=== PATIENT | male | born 1960 | race Caucasian/White ===

== ENCOUNTER → 2022-06-08 14:15 | Outpatient (REF) | payer OTHER, SELFPAY | LOC: HO.SL 14:15 | PROVIDERS: Visit Provider Registered Nurse | DX: G47.33 Obstructive sleep apnea (adult) (pediatric) (principal) | CPT/HCPCS: 95806 ==

== ENCOUNTER 2023-08-17 08:37 | Outpatient (REF) | payer OTHER, SELFPAY ==
[2023-08-17 12:24] LABS: Alanine Aminotransferase 27 U/L (0-40); Albumin Level 4.3 g/dL (3.5-5.0); Alkaline Phosphatase 87 U/L (39-117); Anion Gap 14 (12-20); Aspartate Amino Transferase 24 U/L (5-37); Bilirubin Total 0.8 mg/dL (0.0-1.0); Blood Urea Nitrogen 16 mg/dL (9-16); Calcium 9.5 mg/dL (8.4-10.2); Carbon Dioxide 24 mmol/L (22-29); Chloride 106 mmol/L (96-108); Cholesterol 115 mg/dL (<200); Estimated Glomerular Filt Rate > 60; Glucose Random 100 mg/dL (60-115); HDL Cholesterol 40 mg/dL (>40); LDL Cholesterol Calculated 56 mg/dL (<100); Sodium 140 mmol/L (135-145); Total Protein 7.4 g/dL (6.5-8.0); Triglycerides 96 mg/dL (<150)
== END 2023-08-17 08:38 | disposition home or self-care (01) ==
LOC: HO.HHCL 08:37
PROVIDERS: Visit Provider Registered Nurse
DX: I10 Essential (primary) hypertension (principal)
CPT/HCPCS: 36415; 80053; 80061

== ENCOUNTER 2024-05-02 10:47 | Outpatient (AMB) | payer BC, SELFPAY ==
--- NOTE | 2024-05-02 08:04 | A.OFFVIS_ITS ---
Intake Visit Reasons: LDCT HPI HPI LDCT: Details: Initial visit for this 64yo smoker with a 25PYH. Patient started smoking at age 20 for 29 years at 1ppd. He quit ~2009. . Denies marijuana use. Denies second hand smoke exposure. Denies exposure to chemicals or substances like asbestos. . Denies known family history of lung cancer. Denies personal history of cancers. Denies chest CT in last year. . Denies recent travel outside the [place]. Denies recent respiratory illness or recent hospitalization for respiratory issues. Denies testing positive for COVID. Admits receiving COVID Vaccine. . Denies fever, chills, new/worsening cough, hemoptysis, hoarseness or dysphagia. Denies significant chest pain, significant dyspnea or unintentional weight loss. Patient Lung Cancer Screening Questionnaire reviewed with patient by provider. . Shared Decision Making Completed. Patient meets criteria. Discussed in detail with patient, the risk vs benefit of LDCT screening. Patient consents to proceed with scan. Discussed and encouraged continuedsmoking cessation. This will be one and only scan if comes back Lung RADS 1-or-2 as quit 15years ago. [facility] Medical History (Updated 05/02/24 @ 11:09 by Eva Carmichael PA-C) Personal history of nicotine dependence Surgical History (Updated 11/29/23 @ 14:21 by EMILEE Galo) H/O vasectomy H/O right inguinal hernia repair H/O colonoscopy Social History (Updated 05/02/24 @ 11:09 by Eva Carmichael PA-C) Patient Tobacco Use Status: Former Tobacco user Years Smoked: (onset 20yo, 1ppd x 29yrs, 25pyh - quit 2009) Assessment & Plan Assessment & Plan (1) Personal history of nicotine dependence: Comment: (onset 20yo, 1ppd x 29yrs, 25pyh - quit 2009) Code(s): Z87.891 - Personal history of nicotine dependence Category: Medical Plan: - SDM visit completed today in office. - Patient meets criteria for LDCT for lung cancer screening purposes and is asymptomatic. - Smoking cessation counseling offered. Patients can always call [phone]. - Will arrange for a LDCT scan of the chest for screening purposes at [facility]. - Risks, benefits, and alternatives were discussed in detail and the patient agrees to proceed. - Risks discussed include but are not limited to: radiation exposure, anxiety during testing and while awaiting results, false negatives, false positives and possibility of additional intervention such as further imaging or surgical procedures for benign disease. - Benefits are obviously detection of lung cancer at an early stage which can lead to improved outcomes. - Discussed the importance of screening program compliance with adherence to yearly LDCT scan as scheduled - or sooner interval scans for personalized screening regimen. - Discussed follow up plan. Our office will send a letter discussing results and if needed set up phone call and office visit based on CT findings. - Patient educated on results categorization and the management decisions for suspicious findings potentially found on the screening LDCT scan. Any patient with a Lung RADS score of 3 or 4 will be reviewed by a multidisciplinary team at [facility] to form a plan of action in regards to scan findings. - If further work up is warranted for a suspicious lung finding this will be followed by the Lung Cancer Screening program in conjunction with the Thoracic Surgery Department at [facility]. - A copy of the office note and LDCT will be sent to the patient's PCP - as well as documentation on any associated further plans of care. - Incidental findings on LDCT are the PCP's responsibility. These findings are indicated with an S finding on the LDCT Assessment. A note discussing the findings will be sent to the PCP who is then responsible for further management. - All questions answered.? Plan Coding Level of Care Code Lung Cancer Screening G0296 Diagnoses Personal history of nicotine dependence Z87.891
== END 2024-05-02 11:07 | disposition home or self-care (01) ==
PROVIDERS: PCP Registered Nurse; Visit Provider Physician Assistant Medical
DX: Z87.891 Personal history of nicotine dependence (principal)
CPT/HCPCS: G0296

== ENCOUNTER 2024-05-02 11:09 | Outpatient (REF) | payer BC, SELFPAY ==
--- NOTE | ~2024-05-02 | CT_ITS ---
CLINICAL HISTORY: Z87.891 - Personal history of nicotine dependence CT lung cancer screening (LDCT) Comparison: None Technique: Axial CT images of the chest using low-dose technique. Referring provider counseled the patient on shared decision-making for LDCT screening. Additional counseling was provided on smoking cessation. Effective radiation dose total: DLP 59.3 mGycm, CTDIvol 1.6 mGy. Findings: Lung: No pulmonary nodules identified. Lungs are clear. No significant pleural effusion or pneumothorax. Coronary artery calcifications: None Colonic diverticulosis Minimal gynecomastia. Impression: No pulmonary nodules identified. Category 1, normal continued annual screening. Category 1: Normal; continue annual screening Category 2: Benign appearance or behavior, continue annual screening Category 3: Probably benign, [address] recommended Category 4A: Suspicious, [address] recommended; may consider PET/CT Category 4B: Suspicious, Additional diagnostics and/or tissue sampling recommended Category 4X: Suspicious, Additional diagnostics and/or tissue sampling recommended Category 0: Recalls (incomplete screen due to Incomplete coverage, Noise, Respiratory motion, Expiration, Obscured by acute abnormality) This document has been electronically signed by: Kyler Montilla MD on 05/02/2024 22:07:59
== END 2024-05-02 11:10 | disposition home or self-care (01) ==
LOC: HO.CT 11:09
PROVIDERS: PCP Registered Nurse; Visit Provider Physician Assistant Medical
DX: Z12.2 Encounter for screening for malignant neoplasm of respiratory organs (principal); Z87.891 Personal history of nicotine dependence
CPT/HCPCS: 71271

== ENCOUNTER 2024-12-03 08:44 | Outpatient (AMB) | payer BC, SELFPAY ==
--- NOTE | 2024-12-03 08:50 | MHC.OFFVIS ---
Vital Signs 12/03/24 09:18 Height 6 ft 2 in Weight 232 lb BMI 29.8 BP 108/74 Blood Pressure Location Lt brachial Position Sitting Pulse 73 Pulse Oximetry (%) 99 Oxygen Delivery Method Room Air Intake Visit Reasons: colo screening Intake Note: Patient new consult for 2nd pre colonoscopy screening/ 5 yrs recall. Patient denies any GI issues for today visit. 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 He is referred by [facility]. PMX DION Hypertension High cholesterol Obesity-BMI OF 31 Tubular adenoma * SURGICAL HISTORY COLONOSCOPY -2019; [place]= 1 TA Vasectomy Right inguinal hernia repair * ALLERGIES SURAJ inhibitor-cough * [facility] LABS: Needs labs updated TODAY'S VISIT [facility] Last scope 2018 with TA. Fasting labs ordered to facilitate upcoming appt with PCP including lipid. He denies bowel or upper stomach problems. HE has DION and denies cardiac problems. No anes or sed problems. NO ID Problems THere is no known FHX of polyps or CRC known to him. [facility] Medical History (Updated 12/03/24 @ 08:53 by EMILEE Galo) Personal history of nicotine dependence Surgical History H/O vasectomy H/O right inguinal hernia repair H/O colonoscopy Social History (Updated 05/02/24 @ 11:09 by Eva Carmichael PA-C) Patient Tobacco Use Status: Former Tobacco user Years Smoked: (onset 20yo, 1ppd x 29yrs, 25pyh - quit 2009) Review of Systems Const Denies fatigue, Denies fever(s), Denies night sweats, Denies poor appetite and Denies weight loss Eyes Reports requires corrective lenses ENT Reports Normal hearing present, Denies dental pain, Denies dysphagia, Denies hearing loss, Denies mouth pain, Denies odynophagia, Denies throat swelling, Denies tongue swelling and Reports other (Dentition adequate) GI Details: Denies abdominal pain, Denies melena, Denies bloating, Denies hematochezia, Denies constipation, Denies GI cramping, Denies dysphagia, Denies excessive flatus, Denies early satiety, Denies heartburn, Denies diarrhea, Denies nausea, Denies odynophagia, Denies vomiting and Denies hematemesis Skin/Breast Denies pruritus, Denies lesions, Denies rash and Denies jaundice Neuro Reports Normal hearing present and Denies Abnormal speech present Endo Denies fatigue Aller/Immun Denies throat swelling and Denies tongue swelling Physical Exam Const General: cooperative, no acute distress, well developed and well groomed Nutritional Appearance: well nourished and overweight Orientation/consciousness: oriented to person, oriented to place and oriented to time Limitations: language barrier HEENT Head: Yes normocephalic and Yes atraumatic Eyes General: appearance normal, both eyes and all related structures Pupils: Equal, round and reactive pupils present Neck Neck: Yes normal visual inspection and Yes no lymphadenopathy Thyroid: Thyroid normal Resp Effort & Inspection: normal respiratory effort and able to speak in complete sentences Auscultation: clear to auscultation bilaterally Cardio Rate: regular rate Rhythm: regular rhythm Heart sounds: Normal, physiologic split S2 sound present Peripheral pulses: radial pulses present and posterior tibial pulses present GI Inspection: No distended, No Abdominal panniculus present and Yes obesity Palpation (GI): Soft to palpation, nontender, no guarding, not rigid and No hepatosplenomegaly present Percussion: Yes normal to percussion Auscultation: normal bowel sounds Rectal Exam - Male: Yes deferred Skin General skin exam: no rashes or lesions noted, turgor normal, skin not dry, no jaundice, No spider nevi and no striae Rashes: no rashes Nails: normal Neuro General: oriented to person, oriented to place and oriented to time Cranial nerves: Yes Equal, round and reactive pupils present and Yes Normal hearing present Speech: No Abnormal speech present Extrem General: Yes normal to inspection, No clubbing, No cyanosis and No edema Psych Appearance: grossly normal and well kempt Mental Status: mental status grossly normal Speech and movement: Normal speech and movement present Affect: normal affect Attitude: cooperative Thought process: Normal thought process present and not confabulating Thought content: Normal thought content present Insight: Good insight present (Psych) Judgement: Good judgement present (Psych) Assessment & Plan Assessment & Plan (1) Pre-op examination: Code(s): Z01.818 - Encounter for other preprocedural examination Category: Medical (2) DION (obstructive sleep apnea): Comment: (mild AHI 7.8 - 06/2023) Code(s): G47.33 - Obstructive sleep apnea (adult) (pediatric) Category: Medical (3) Personal history of nicotine dependence: Comment: (onset 20yo, 1ppd x 29yrs, 25pyh - quit 2009) Code(s): Z87.891 - Personal history of nicotine dependence Category: Medical (4) Tubular adenoma of colon: Comment: 2019 scope= 1 TA repeat in 5 years Code(s): D12.6 - Benign neoplasm of colon, unspecified Category: Medical (5) High cholesterol: Code(s): E78.00 - Pure hypercholesterolemia, unspecified Category: Medical (6) Hypertension: Code(s): I10 - Essential (primary) hypertension Category: Medical Plan [employer] Last scope 2019 with TA. Fasting labs ordered to facilitate upcoming appt with PCP including lipid. He denies bowel or upper stomach problems. HE has DION and denies cardiac problems. No anes or sed problems. NO ID Problems THere is no known FHX of polyps or CRC known to him. Orders: Orders Colonoscopy - GI Use Only Today Complete Blood Count Auto Diff Today Z01.818 - Encounter for other preprocedural examination Lipid Panel Today E78.00 - Pure hypercholesterolemia, unspecified Comprehensive [place]. Panel Fast Today E78.00 - Pure hypercholesterolemia, unspecified, I10 - Essential (primary) hypertension Medications: New bisacodyl (Dulcolax (bisacodyl)) 10 mg (2 x 5 mg) PO BEDTIME 4 tabs 0RF 2 days peg 3350-electrolytes 236-22.74-6.74 -5.86 gram (Golytely) until fecal effluent is clear; do not exceed a total volume of 2,000 mL 240 mL PO Q10M 4,000 mL 0RF 1 day Z12.11 - Encounter for screening for malignant neoplasm of colon Coding Level of Care Code New Pt Level 3 (18041) Diagnoses Pre-op examination Z01.818 DION (obstructive sleep apnea) G47.33 Personal history of nicotine dependence Z87.891 Tubular adenoma of colon D12.6 High cholesterol E78.00 Hypertension I10
[2024-12-03 09:18] VITALS: BP 108/74; PULSE 73; O2SAT 99; BMI 29.8
--- OUTSIDE RECORDS SUMMARY | 2024-12-03 09:25 | XMS_ITS | Clinical Summary ---
Author Organization [employer] Address [address] [facility] 7[address] [place] [address] Care Team Providers Care Vehicle Refinisher Name Role Phone Brianna Engel [facility] Primary Care Provider [phone] Allergies Active Allergy Reactions Criticality Noted Date Comments [place] Inhibitors 04/24/2016 Medications losartan (Cozaar) 100 MG tablet take 1 tablet by oral route every day 021 Active psyllium (Konsyl Daily Fiber) 100 % powder 1 scoop bid prn constipation 019 Active hydrocortisone (Anusol-HC) 25 MG suppository 005 Active Blood Pressure kit Active amLODIPine (Norvasc) 10 MG tabletIndications :Essential hypertension TAKE 1 TABLET BY MOUTH EVERY DAY IN THE MORNING FOR BLOOD PRESSURE 30 tablet 3 025 Active atorvastatin (Lipitor) 10 MG tabletIndications :Mixed hyperlipidemia TAKE 1 TABLET BY MOUTH EVERY DAY IN THE MORNING 90 tablet 3 025 Active atorvastatin (Lipitor) 10 MG tabletIndications :Mixed hyperlipidemia TAKE 1 TABLET BY MOUTH EVERY DAY IN THE MORNING 90 tablet 3 024 2024 Discontinued Active Problems Problem Noted Date Diagnosed Date DION (obstructive sleep apnea) 07/16/2022 Overview (07/16/2022): 04/2022 Home sleep study with mild DION. No CPAP at this time Healthcare maintenance 07/14/2022 Overview (07/16/2022): C-scope: 11/2018, polyp removed, pathology results not in chart PSA:04/2022, 1.19 HCV Screen: Neg 04/2022 HIV Screen: Neg 04/2022 A1c: 04/2022 5.6% Obesity (BMI 30.0-34.9) 03/29/2022 Smoking greater than 30 pack years 03/29/2022 Overview (08/08/2023): Quit age 47 Mixed hyperlipidemia 03/29/2022 Overview (07/16/2022): Atorvastatin 10mg Assessment & Plan (10/29/2022 3:19 PM EDT): Continue current regimen Repeat lipids at follow up Assessment & Plan (07/16/2022 11:08 AM EDT): Continue current regimen Pending repeat lipid panel may increase accordingly Tubular adenoma of colon 12/04/2018 Essential hypertension 03/29/2016 Overview (10/29/2022): Losartan 100mg Amlodipine 10mg Prior cough with ACEi Maintenance: BMP: 04/2022 Lipid Panel: 07/2022 ASCVD Risk: 8.0% EKG: Obtain baseline at f/u - Aerobic exercise to reduce BP. Initial goal of 30 min walk 3-5x/week. Increase as tolerated. - low-sodium diet (goal: <2g/day) and heart healthy diet such as DASH to reduce BP and prevent ASCVD. - Home BP monitoring 1-2 x day with goal of <140/90. - Seek immediate medical attention for chest pain, palpitations, SOB, syncope, or sudden changes in mental status. - Do not change or discontinue current prescriptions without first consulting health care provider Assessment & Plan (10/29/2022 3:18 PM EDT): Well controlled Continue current regimen Assessment & Plan (07/16/2022 11:01 AM EDT): Well controlled Continue current regimen Updated lipid panel ordered Resolved Problems Problem Noted Date Diagnosed Date Resolved Date Cardiovascular event risk 03/29/2022 Muscle cramp 03/29/2022 07/16/2022 Adverse effect of angiotensi n-converting enzyme inhibitor 04/24/2016 07/16/2022 IFG (impaired fasting glucose) 04/24/2016 07/16/2022 Encounters Date Type Department Care Team Description 11/20/2024 Telephone [facility] [address] [facility] [place] [address] [place], [facility] Oct recall 11/15/2024 Refill [facility] MEDICINE [address] [facility] [address] [place] [facility] Mixed hyperlipidemia 10/18/2024 Refill [facility] [address] [facility] [place] [address] [place], [facility] Essential hypertension from Last 3 Months Immunizations Immunization Administration Dates Next Due Influenza injectable quadriv alent preservative free 02/03/2022,01/15/2019,03/29/2016 Moderna Covid-19 Vaccine 12+ 10/25/2021, 03/09/2021,06/16/2020,2020 Pfizer Covid-19 Vaccine 12+ 07/23/2024 Pneumococcal Conjugate PCV 20 07/23/2024 Tdap 08/12/2021 Zoster, Recombinant 05/04/2020,03/01/2020 Family History Medical History Relation Name Comments Diabetes type II Mother Hypertension Mother Colon cancer Neg Hx Prostate cancer Neg Hx Relation Name Status Comments Mother Social History Tobacco Use Types Packs/Day Years Used Date Smoking Tobacco: Former Cigarettes Q uit: 2009 Smokeless Tobacco: Never Tobacco Cessation:Counseling Given: Not Answered Alcohol Use Standard Drinks/Week Comments Not Currently 0 (1 standard drink = 0.6 oz pur e alcohol) rare Depression Answer Date Recorded Patient Health Questionnaire-9 Score 0 07/23/2024 Patient Health Questionnaire-9 Score 0 07/23/2024 Last PHQ-9: Questionnaire Data Not on file 0 07/23/2024 Housing Stability Answer Date Recorded What is your housing situation today? I have jackie bailey 01/08/[address] you li ve. Do you have problems with any of the following? None of the above 01/08/2024 Food Insecurity Answer Date Recorded Within the past 12 months, y ou worried that your food would run out before you got money to buy more: Never True 01/08/2024 Within the past 12 months,th e food you bought just didn't last and you didn't have enough money to get more: Never True Transportation Answer Date Recorded In the past 12 months, has l ack of transportation kept you from medical appts, meetings, work or from getting things needed for daily living? No 01/08/2024 Utilities Answer Date Recorded In the past 12 months, has t he electric, gas, oil or water company threatened to shut off services in your home? No 01/08/2024 Depression Answer Date Recorded Patient Health Questionnaire-2 Score 0 07/23/2024 Internet Access Answer Date Recorded Internet Access Q1 Yes 01/08/2024 Internet Access Q2 Not on file 01/08/2024 Sex and Gender Information Value Date Recorded Sex Assigned at Male 02/13/2022 10:29 AM EDT Legal Sex Male 10:29 AM EDT Gender Identity Male 02/13/2022 10:29 AM EDT Sexual Orientation Choose not to disclose 2021 10:29 AM EDT Last Filed Vital Signs Vital Sign Reading Time Taken Comments Blood Pressure 120/70 07/23/2024 11:15 AM EDT Pulse 75 07/23/2024 10:46 AM EDT Temperature 36.8 C (98.3 F) 07/23/2024 10:46 AM EDT Respiratory Rate 21 07/23/2024 10:46 AM EDT Oxygen Saturation 99% 07/23/2024 10:46 AM EDT Inhaled Oxygen Concentration - - Weight 108 kg (239 lb) 07/23/2024 10:46 AM EDT Height 188 cm (6' 2 ) 07/23/2024 10:46 AM EDT Body Mass Index 30.69 07/23/2024 10:46 AM EDT Plan of Treatment Health Maintenance Due Date Last Done Comments CT Colonography 1962 Colonoscopy 1962 Colorectal Cancer Screening 1962 FIT DNA/Cologuard 1962 FIT 1962 FOBT 1962 Sigmoidoscopy 1962 Influenza Vaccine (#1) 2024 , 02/03/2022, 01/15/2019, Additional history exists SDOH Screening 07/15/2025 07/15/2024 Alcohol/Substance Use Screening 07/23/2025 07/23/2024 Depression Screening 07/23/2025 07/23/2024, 07/24/19 Disability Screening 07/23/2025 07/23/2024 Tobacco Screening 07/27/2025 07/27/2024 Lipid Panel 08/16/2028 08/17/2023, 04/0 09/2022, 05/11/2022, Additional history exists DTaP/Tdap/Td Vaccines (2 - Td or Tdap) 08/13/2031 08/12/2021 RSV Patients and Patients Aged 60 years or older (1 - 1-dose 75+ series) 2037 Zoster Vaccines Completed 05/04/2020, 03/01/2020 HIV Screening Completed 05/11/2022 Hepatitis C Screening Completed 05/11/2022 COVID-19 Vaccine Completed 07/23/2024, , 10/25/2021, Additional history exists Pneumococcal Vaccine: 50+ Years Completed 07/23/2024 HIB Vaccines Aged Out No longer eligi ble based on patient's age to complete this topic HPV Vaccines Aged Out No longer eligi ble based on patient's age to complete this topic Hepatitis A Vaccines Aged Out No long er eligible based on patient's age to complete this topic Hepatitis B Vaccines Aged Out No long er eligible based on patient's age to complete this topic IPV Vaccines Aged Out No longer eligi ble based on patient's age to complete this topic Meningococcal B Vaccine Aged Out No l onger eligible based on patient's age to complete this topic Meningococcal Vaccine Aged Out No shannon wilma eligible based on patient's age to complete this topic RSV under 20 months Aged Out No longe r eligible based on patient's age to complete this topic Rotavirus Vaccines Aged Out No longer eligible based on patient's age to complete this topic Procedures Procedure Name Priority Date/Time Associated Diagnosis Comments LIPID PANEL, STANDARD Routine 08/17/2023 8:40 AM EDT Essential hypertension HEPATITIS C AB W/REFL TO HCV RNA, QN, PCR Routine 05/11/2022 10:04 AM EST Healthcare maintenance HIV 1/2 ANTIGEN/ANTIBODY, FOURTH GENERATION W/RFL Routine 05/11/2022 10:04 AM EST Healthcare maintenance from Last 3 Months or Most Recently Relevant to Health Maintenance Results * (ABNORMAL) Lipid Panel, Standard (08/17/2023 8:40 AM EDT) Triglycerides 96 <150 mg/dL [facility] Comment:Desirable Triglyceri de: less than 150 mg/dLBorderline High Triglyceride 150-199 mg/dLHigh Triglyceride: 200-499 mg/dLVery High Triglyceride: greater than or equal to 5OO mg/dL Cholesterol 115 <200 mg/dL [facility] Comment:Desirable Cholestero l: less than 200 mg/dLBorderline High Cholesterol: 200-239 mg/dLHigh Cholesterol: greater than 239 mg/dL LDL Cholesterol Calculated 56 <100 mg/dL [facility] Comment:Desirable LDL: less than 100 mg/dLNear Optimal/Above Optimal LDL: 110- 129 mg/dLBorderline High LDL: 130-159 mg/dLHigh LDL: 160-189 mg/dLVery High LDL: greater than or equal to 190 mg/dL HDL Cholesterol 40(L) >40 mg/dL [facility] Comment:Desirable HDL: great er than 40 mg/dL Note: This HDL assay may give artificially low results in patients with liver disease. Blood Venous blood specimen / Unknown 08/17/2023 8:40 AM EDT 08/17/2023 11:28 AM EDT [facility] LAB BLOOD ORDERABLES Final Re sult [facility] [address] [place] [phone] * Hepatitis C Antibody with Reflex to HCV, RNA, Quantitative, Real-Time PCR (05/11/2022 10:04 AM EST) Hepatitis C Antibody NON-REACT PATTI NON-REACT PATTI [facility] Index 0.12 <1.00 [facility] [place] [facility] Comment: HCV antibody was non-reactive. There is no laboratory evidence of HCV infection. In most cases, no further action is required. However, if recent HCV exposure is suspected, a test for HCV RNA (test code 94592) is suggested. For additional information please refer to http://BioElectronics.Envis/faq/RTN22v6 (This link is being provided for informational/ educational purposes only.) Blood Venous blood specimen / Unknown 05/11/2022 10:04 AM EST 05/11/2022 10:04 AM EST Narrative [facility] - 05/12/2022 1:47 PM EST FASTING:NO FASTING: NO [facility] LAB BLOOD ORDERABLES Final Re sult [facility] [address], [place] [address] [facility] [employer] [address] [facility], ([address]) [place] [address] * HIV-1/2 Antigen and Antibodies, Fourth Generation, with Reflexes (05/11/2022 10:04 AM EST) Pathologist [facility] HIV Antigen/Antibody, 4th Generation NON-REAC TIVE NON-REAC TIVE [facility] [place] [facility] Comment: HIV-1 antigen and HIV-1/HIV-2 antibodies were not detected. There is no laboratory evidence of HIV infection. PLEASE NOTE: This information has been disclosed to you from records whose confidentiality may be protected by state law. If your state requires such protection, then the state law prohibits you from making any further disclosure of the information without the specific written consent of the person to whom it pertains, or as otherwise permitted by law. A general authorization for the release of medical or other information is NOT sufficient for this purpose. For additional information please refer to http://BioElectronics.Moneero.Mashable/faq/SGV688 (This link is being provided for informational/ educational purposes only.) The performance of this assay has not been clinically validated in patients less than 2 years old. Blood Venous blood specimen / Unknown 05/11/2022 10:04 AM EST 05/11/2022 10:04 AM EST Narrative [facility] - 05/12/2022 1:47 PM EST FASTING:NO FASTING: NO [facility] LAB BLOOD ORDERABLES Final Re sult [facility] [address] [facility], 3rd Fl[address] [place] [address] [facility] [address] [facility], ([address]) [place] [address] from Last 3 Months or Most Recently Relevant to Health Maintenance Insurance [facility] HMO Care Teams Vehicle Refinisher Relationship Specialty Start Date End Date Brianna Engel FNP [address] [place] [phone] PCP - General Family Medicine 05/11/22
== END 2024-12-03 09:55 | disposition home or self-care (01) ==
LOC: HO.HGI 08:45
PROVIDERS: PCP Registered Nurse; Visit Provider Nurse Practitioner
DX: Z01.818 Encounter for other preprocedural examination (principal); Z12.11 Encounter for screening for malignant neoplasm of colon; Z86.0101 Personal history of adenomatous and serrated colon polyps; Z87.891 Personal history of nicotine dependence; E78.00 Pure hypercholesterolemia, unspecified; I10 Essential (primary) hypertension; G47.33 Obstructive sleep apnea (adult) (pediatric)
CPT/HCPCS: S0285

== ENCOUNTER 2024-12-06 07:44 | Outpatient (REF) | payer BC, SELFPAY ==
[2024-12-06 08:26] LABS: MANUAL DIFF FLAG NO
[2024-12-06 08:51] LABS: Hematocrit 42.9 % (42.0-52.0); Hemoglobin 14.9 g/dl (14.0-18.0); Imm Gran Abs Auto 0.02 X10*3/uL (0.00-0.03); Imm Gran Pct Auto 0.3 % (0.0-0.4); Lymphocytes Absolute Auto 1.9 X10*3/uL (1.2-4.9); Mean Corpuscular HGB Conc 34.7 g/dl (31.0-36.0); Mean Corpuscular Hemoglobin 31.7 pg (27.0-33.0); Mean Corpuscular Volume 91.3 fL (80.0-98.0); NRBC Abs Auto 0.000 X10*3/uL (0.0-0.012); NRBC Pct Auto 0.0 /100WBC (0.0-0.2); Platelet Count 255 X10*3/uL (160-400); Red Blood Count 4.70 X10*6/uL (4.60-5.80); White Blood Count 6.1 X10*3/uL (4.8-10.8)
[2024-12-06 09:29] LABS: Alanine Aminotransferase 40 U/L (0-40); Albumin Level 4.4 g/dL (3.5-5.0); Alkaline Phosphatase 93 U/L (39-117); Anion Gap 11 (12-20); Aspartate Amino Transferase 32 U/L (5-37); Blood Urea Nitrogen 14 mg/dL (9-16); Calcium 9.3 mg/dL (8.4-10.2); Carbon Dioxide 25 mmol/L (22-29); Chloride 108 mmol/L (96-108); Cholesterol 119 mg/dL (<200); Estimated Glomerular Filt Rate > 60; HDL Cholesterol 36 mg/dL (>40); Potassium 3.8 mmol/L (3.3-5.1); Sodium 140 mmol/L (135-145); Total Protein 7.3 g/dL (6.5-8.0); Triglycerides 121 mg/dL (<150)
== END 2024-12-06 07:45 | disposition home or self-care (01) ==
LOC: HO.LAB 07:44
PROVIDERS: PCP Registered Nurse; Visit Provider Nurse Practitioner
DX: Z01.818 Encounter for other preprocedural examination (principal); E78.00 Pure hypercholesterolemia, unspecified; I10 Essential (primary) hypertension
CPT/HCPCS: 36415; 80053; 80061; 85025

== ENCOUNTER 2025-02-02 07:17 | Day surgery (SDC) | payer BC, SELFPAY ==
--- OUTSIDE RECORDS SUMMARY | 2025-01-27 10:24 | XMS_ITS | Clinical Summary ---
Author Organization [employer] Address [address] [facility] 7t [place] [address] Care Team Providers Care Silo Erector Name Role Phone Toro [facility] Primary Care Provider [phone] Allergies Active Allergy Reactions Criticality Noted Date Comments [place] Inhibitors 04/24/2016 Medications losartan (Cozaar) 100 MG tablet take 1 tablet by oral route every day 07/09/19 21 Active psyllium (Konsyl Daily Fiber) 100 % powder 1 scoop bid prn constipation 09/07/19 19 Active hydrocortisone (Anusol-HC) 25 MG suppository 10/15/19 05 Active Blood Pressure kit A ctive amLODIPine (Norvasc) 10 MG tabletIndications: Essential hypertension TAKE 1 TABLET BY MOUTH EVERY DAY IN THE MORNING FOR BLOOD PRESSURE 30 tablet 3 10/21/19 25 Active atorvastatin (Lipitor) 10 MG tabletIndications: Mixed hyperlipidemia TAKE 1 TABLET BY MOUTH EVERY DAY IN THE MORNING 90 tablet 3 11/19/19 25 Active Active Problems Problem Noted Date Diagnosed Date [...] Type Department Care Team Description 11/20/2024 Telephone [facility] [address] [place] [address] [facility] 11/15/2024 Refill [facility] [address] [place] [address] [facility] Mixed hyperlipidemia from Last 3 Months Immunizations Immunization Administration [...] 07/23/2024 Tobacco Screening 07/27/2025 07/27/2024 Lipid Panel 12/06/2029 12/06/2024, 05/0 06/2023, 07/20/2022, Additional history exists DTaP/Tdap/Td Vaccines (2 - [...] Associated Diagnosis Comments LIPID PANEL, STANDARD Routine 12/06/2024 8:24 AM EDT COMPREHENSIVE METABOLIC PANEL, FASTING Routine 12/06/2024 8:24 AM EDT CBC WITH AUTO DIFFERENTIAL Routine 12/06/2024 8:24 AM EDT HEPATITIS C AB W/REFL TO HCV RNA, QN, PCR Routine 05/11/2022 10:04 AM EST Healthcare maintenance HIV 1/2 ANTIGEN/ANTIBODY, FOURTH GENERATION W/RFL Routine 05/11/2022 10:04 AM EST Healthcare maintenance from Last 3 Months or Most Recently Relevant to Health Maintenance Results * (ABNORMAL) Comprehensive Metabolic Panel, Fasting (12/06/2024 8:24 AM EDT) Sodium 140 135 - 145 mmol/L [facility] Potassium 3.8 3.3 - 5.1 mmol/L [facility] Chloride 108 96 - 108 mmol/L [facility] Carbon Dioxide 25 22 - 29 mmol/L [facility] Anion Gap 11(L) 12 - 20 [facility] Urea Nitrogen (BUN) 14 9 - 16 mg/dL [facility] Creatinine, Serum 1.12 0.5 - 1.4 mg/dL [facility] Estimated Glomerular Filt Rate >60 [facility] Comment:Chronic Kidney Disea se: Estimated GFR < 60 mL/min/1.35o6Uujzzo Kidney Disease: Estimated GFR < 15 mL/min/1.73m2 Glucose Fasting 106(H) 60 - 99 mg/dL [facility] Comment:A fasting glucose fr om 100-125 mg/dl is considered impaired(pre-diabetes). Calcium 9.3 8.4 - 10.2 mg/dL [facility] Bilirubin, Total 1.1(H) 0.0 - 1.0 mg/dL [facility] Aspartate Amino Transferase 32 5 - 37 U/L [facility] Alanine Aminotransferase 40 0 - 40 U/L [facility] Total Protein 7.3 6.5 - 8.0 g/dL [facility] Albumin Level 4.4 3.5 - 5.0 g/dL [facility] Alkaline Phosphatase 93 39 - 117 U/L [facility] 12/06/2024 8:24 AM EDT 12/06/2024 8:24 AM EDT us Generic External Data Provider LAB BLOOD ORDERAB LES Final Result [facility] [address] [place] [phone] * (ABNORMAL) CBC auto differential (12/06/2024 8:24 AM EDT) White Blood Count 6.1 4.8 - 10.8 X10*3/uL [facility] Red Blood Count 4.70 4.60 - 5.80 X10*6/uL [facility] Hemoglobin 14.9 14.0 - 18.0 g/dl [facility] Hematocrit 42.9 42.0 - 52.0 % [facility] Mean Corpuscular Volume 91.3 80.0 - 98.0 fL [facility] Mean Corpuscular Hemoglobin 31.7 27.0 - 33.0 pg [facility] Mean Corpuscular HGB Conc 34.7 31.0 - 36.0 g/dl [facility] Red Cell Distribution Width 13.4 11.0 - 16.0 % [facility] Platelet Count 255 160 - 400 X10*3/uL [facility] Mean Platelet Volume 10.3 9.4 - 12.4 fL [facility] Neutrophils Percent Auto 54.1 45 - 73 % [facility] Imm Gran Pct Auto 0.3 0.0 - 0.4 % [facility] Lymphocytes Percent Auto 31.5 20 - 40 % [facility] Monocytes Percent Auto 6.8 2 - 11 % [facility] Eosinophils Percent Auto 6.3(H) 0 - 4 % [facility] Basophils Percent Auto 1.0 0 - 2 % [facility] NRBC Pct Auto 0.0 0.0 - 0.2 /100WBC [facility] Neutrophils Absolute Auto 3.3 2.0 - 8.3 x10*3/uL [facility] Imm Gran Abs Auto 0.02 0.00 - 0.03 X10*3/uL [facility] Lymphocytes Absolute Auto 1.9 1.2 - 4.9 X10*3/uL [facility] Monocytes Absolute Auto 0.4 0.1 - 1.2 X10*3/uL [facility] Eosinophils Absolute Auto 0.4 0.0 - 0.4 X10*3/uL [facility] Basophils Absolute Auto 0.1 0.0 - 0.2 X10*3/uL [facility] NRBC Abs Auto 0.000 0.0 - 0.012 X10*3/uL [facility] 12/06/2024 8:24 AM EDT 12/06/2024 8:24 AM EDT us Generic External Data Provider LAB BLOOD ORDERAB LES Final Result Performing Organization Address [facility] Co de Phone Number [facility] [address] [place] [phone] * (ABNORMAL) Lipid Panel, Standard (12/06/2024 8:24 AM EDT) Triglycerides 121 <150 mg/dL [facility] Comment:Desirable Triglyceri de: less than 150 mg/dLBorderline High Triglyceride 150-199 mg/dLHigh Triglyceride: 200-499 mg/dLVery High Triglyceride: greater than or equal to 5OO mg/dL Cholesterol 119 <200 mg/dL [facility] Comment:Desirable Cholestero l: less than 200 mg/dLBorderline High Cholesterol: 200-239 mg/dLHigh Cholesterol: greater than 239 mg/dL LDL Cholesterol Calculated 59 <100 mg/dL [facility] Comment:Desirable LDL: less than 100 mg/dLNear Optimal/Above Optimal LDL: 110- 129 mg/dLBorderline High LDL: 130-159 mg/dLHigh LDL: 160-189 mg/dLVery High LDL: greater than or equal to 190 mg/dL HDL Cholesterol 36(L) >40 mg/dL [facility] Comment:Desirable HDL: great er than 40 mg/dL Note: This HDL assay may give artificially low results in patients with liver disease. 12/06/2024 8:24 AM EDT 12/06/2024 8:24 AM EDT us Generic External Data Provider LAB BLOOD ORDERAB LES Final Result Performing Organization Address [facility]/ZIP Co de Phone Number [facility] [address] [place] [phone] * Hepatitis C Antibody with Reflex to HCV, RNA, Quantitative, Real-Time PCR (05/11/2022 10:04 AM EST) Hepatitis C Antibody NON-REACT PATTI NON-REACT PATTI [employer] [place] [employer] Index 0.12 <1.00 [employer] [place] [employer] Comment: HCV antibody was non-reactive. There is no laboratory evidence of HCV infection. In most cases, no further action is required. However, if recent HCV exposure is suspected, a test for HCV RNA (test code 91852) is suggested. For additional information please refer to http://education.Serious Parody/faq/MGD02r2 (This link is being provided for informational/ educational purposes only.) Blood Venous blood specimen / Unknown 05/11/2022 10:04 AM EST 05/11/2022 10:04 AM EST Narrative [facility] - 05/12/2022 1:47 PM EST FASTING:NO FASTING: NO [facility] LAB BLOOD ORDERABLES Final Re sult [facility] [address] [facility], [facility], [place] [address] [employer] [place] Search to Phone [address] [facility], ([address]) [place] [address] * HIV-1/2 Antigen and Antibodies, Fourth Generation, with Reflexes (05/11/2022 10:04 AM EST) Pathologist [facility] HIV Antigen/Antibody, 4th Generation NON-REAC TIVE NON-REAC TIVE [employer] [place] Search to Phone Comment: HIV-1 antigen and HIV-1/HIV-2 antibodies were [...] purpose. For additional information please refer to http://education.NEST Fragrances.Urban Remedy/faq/YTL442 (This link is being provided for informational/ educational purposes only.) The performance of this assay has not been clinically validated in patients less than 2 years old. Blood Venous blood specimen / Unknown 05/11/2022 10:04 AM EST 05/11/2022 10:04 AM EST Narrative [facility] - 05/12/2022 1:47 PM EST FASTING:NO FASTING: NO [facility] LAB BLOOD ORDERABLES Final Re sult [facility] [address], [place] [address] [employer] [facility] [address] [facility], ([address]) [place] [address] from Last 3 Months or Most Recently Relevant to Health Maintenance Insurance [facility] H[facility] Care Teams Silo Erector Relationship Specialty Start Date End Date [place]A Reed [address] [place] [address] PCP - General Family Medicine 05/11/22
[2025-02-02 07:34] VITALS: BMI 29.7
[2025-02-02 07:41] VITALS: BMI 29.7
[2025-02-02 08:09] VITALS: BP 133/88; PULSE 75; RESP 16; TEMP 36.9; O2SAT 97
[2025-02-02] MEDS: Lactated Ringers 1,000 ML 100 ML IVCONT (08:09)
--- NOTE | 2025-02-02 08:37 | HO.ANESPROP2 ---
Documented by User: Bel Rodriguez NP 01/29/25 09:47 HPI - Anesthesia Eval Consult details Narrative: 64yo M for ?Colonoscopy [facility] Active Problems Active Problems: All Active Problems Pre-op examination (Acute) Personal history of nicotine dependence (Acute) Tubular adenoma of colon (Acute) High cholesterol (Acute) Hypertension (Acute) Obesity (BMI 30.0-34.9) (Acute) DION (obstructive sleep apnea) (Acute) Past Medical History Medical History Personal history of nicotine dependence Surgical History Surgical History H/O vasectomy H/O right inguinal hernia repair H/O colonoscopy Social History Social History Patient Tobacco Use Status: Former Tobacco user Years Smoked: (onset 20yo, 1ppd x 29yrs, 25pyh - quit 2009) Smoked in Last 30 Days: No Use of substances other than those prescribed or required for medical reasons: No Have you been hit, kicked, punched, or otherwise hurt by someone within the past year? If so, by whom?: No Are you DNR?: No Advance Directives: No Advance Directives Information Provided: Yes Meds Allergies Allergy/AdvReac Type Severity Reaction Status Date / Time SURAJ Inhibitors AdvReac Intermediate Cough Verified 02/02/25 07:40 Home Medications ?Medication ?Instructions ?Recorded ?Confirmed ?Last Taken ?Type amlodipine 10 mg tablet 10 mg PO QAM blood pressure 12/03/24 02/02/25 02/02/25 06:00 History atorvastatin 10 mg tablet 10 mg PO QAM 12/03/24 02/02/25 Unknown History losartan 100 mg tablet 100 mg PO DAILY 12/03/24 02/02/25 Unknown History Assessment and Plan Assessment Anesthesia Assessment: Chart Reviewed Documented by User: Dee Forrest DO 02/02/25 08:39 [facility] Past Medical History Medical History Personal history of nicotine dependence Family History Family history of problems with anesthesia: No Surgical History Surgical History H/O vasectomy H/O right inguinal hernia repair H/O colonoscopy History of Problems with Anesthesia: No Social History Social History Patient Tobacco Use Status: Former Tobacco user Years Smoked: (onset 20yo, 1ppd x 29yrs, 25pyh - quit 2009) Smoked in Last 30 Days: No Use of substances other than those prescribed or required for medical reasons: No Have you been hit, kicked, punched, or otherwise hurt by someone within the past year? If so, by whom?: No Are you DNR?: No Advance Directives: No Advance Directives Information Provided: Yes Meds Allergies Allergy/AdvReac Type Severity Reaction Status Date / Time SURAJ Inhibitors AdvReac Intermediate Cough Verified 02/02/25 07:40 Home Medications ?Medication ?Instructions ?Recorded ?Confirmed ?Last Taken ?Type amlodipine 10 mg tablet 10 mg PO QAM blood pressure 12/03/24 02/02/25 02/02/25 06:00 History atorvastatin 10 mg tablet 10 mg PO QAM 12/03/24 02/02/25 Unknown History losartan 100 mg tablet 100 mg PO DAILY 12/03/24 02/02/25 Unknown History Exam Exam Date and Time: 02/02/25 0838 Height,Weight and Vital Signs: Height 6 ft 2 in Weight 105 kg Vital Signs Temperature 98.5 F 02/02/25 08:09 Pulse Rate 75 02/02/25 08:09 Respiratory Rate 16 02/02/25 08:09 Blood Pressure 133/88 02/02/25 08:09 Pulse Oximetry 97 02/02/25 08:09 Oxygen Delivery Method Room Air 02/02/25 08:09 Temperature 98.5 F 02/02/25 08:09 Pulse Rate 75 02/02/25 08:09 Respiratory Rate 16 02/02/25 08:09 Blood Pressure 133/88 02/02/25 08:09 Pulse Oximetry 97 02/02/25 08:09 Oxygen Delivery Method Room Air 02/02/25 08:09 Airway Mallampati Class: II TM Dist: <=3cm Neck ROM: Full Loose/Missing/Broken Teeth: Yes (missing molar right lower jaw) Heart: S1S2 Lungs: CTAB Assessment and Plan Assessment Anesthesia Assessment: Anesthesia Plan Discussed and Chart Reviewed Final Anesthetic Review Family History of Problems with Anesthesia: No History of Problems with Anesthesia: No NPO: Yes ASA Class: II Final Preanesthetic Review: No Changes in Pt Med Stat, Meds/Allgs Chart Reviewed, Consent Obtained/Reviewed and Anes Risks/Benef Reviewed Patient Risk: Low Procedure Risk: Low Anesthetic Plan Anesthetic Plan: MAC: and Agree w/ Assess. and Plan Disposition: Standard PACU
--- NOTE | 2025-02-02 08:48 | MHC.SHP ---
Pre-Procedural Eval Section A - 24 Hr Update-Section A only Date of Service: 02/02/25 Section B - Complete if H&P > 30 days Chief Complaint: screening Details of Present Illness: Last colonoscopy was 6 years ago, had an adenoma removed Relevant Family History (Specify if Yes): No Relevant Social History: None Present Medications: see Short Stay Collaborative assessment Medical History: Significant History (Sleep apnea obesity hypertension hyperlipidemia history of smoking) Allergies: Allergies Allergy/AdvReac Type Severity Reaction Status Date / Time SURAJ Inhibitors AdvReac Intermediate Cough Verified 02/02/25 07:40 Review of Systems Sugical H&P ROS: Negative: Constitution, Cardiovascular, Respiratory and Gastrointestinal Exam Surgical H&P Exam: Normal: Heart, Normal: Lungs and Normal: Abdomen Plan Diagnosis/Plan: Unchanged I have reviewed the history and physical and performed a pertinent physical examination on my patient. No changes have occurred unless specified. Time Spent With Patient Time: Total time managing care of this patient today ____ minutes.
--- NOTE | 2025-02-02 09:24 | W.PM.OPN ---
Operative Note Operative Note Date of Service: 02/02/25 Narrative: Preop diagnosis: History of tubular adenoma Postop diagnosis: Mild occasional diverticuli throughout the colon otherwise normal colonoscopy findings Procedure: Colonoscopy Surgeon: Oliver Hua MD The patient is a 64-year-old male who had a tubular adenoma on his last colonoscopy in 2019 and referred to me for colonoscopy. Understood the technique of the planned procedure as was the risks, benefits, and alternatives The patient was brought to the operating room and placed in left lateral decubitus position under monitored anesthesia care. A surgical time-out was done. A full digital rectal exam was done and this did not reveal any significant anal lesions. The tip of the Olympus colonoscope was gently introduced through the anal orifice advanced with insufflation all the way to the cecum. The cecum was intubated. The cecum was identified by visualization of the ileocecal valve as well as the appendiceal orifice. The cecal mucosa was unremarkable. The scope was gradually withdrawn with careful examination of the entire colonic mucosa being done with scope withdrawal. The patient had adequate bowel prep so it was unlikely that any lesion may have been missed. There was note of occasional scattered diverticula throughout the entire colon. The rectum was reached and there were no lesions seen. The anal canal was unremarkable. The scope was then withdrawn completely with desufflation The patient tolerated the procedure well. There were no immediate complications. He falls at average risk for colon cancer so his next colonoscopy for screening may be in the next 10 years.
[2025-02-02 09:27] VITALS: BP 106/73; PULSE 82; RESP 13; TEMP 36.6; O2SAT 97
[2025-02-02 09:42] VITALS: BP 117/83; PULSE 68; RESP 18; TEMP 36.9; O2SAT 96
== END 2025-02-02 10:15 | disposition home or self-care (01) ==
PROVIDERS: PCP Registered Nurse; Visit Provider Surgery
PROC: 0DJD8ZZ Inspection of Lower Intestinal Tract, Via Natural or Artificial Opening Endoscopic (ICD-10-PCS; CPT 45378; principal; 2025-02-02 09:10)
DX: Z12.11 Encounter for screening for malignant neoplasm of colon (principal); Z86.0101 Personal history of adenomatous and serrated colon polyps; K57.30 Diverticulosis of large intestine without perforation or abscess without bleeding; I10 Essential (primary) hypertension; E78.00 Pure hypercholesterolemia, unspecified; E66.9 Obesity, unspecified; Z68.31 Body mass index [BMI] 31.0-31.9, adult; G47.33 Obstructive sleep apnea (adult) (pediatric); Z98.52 Vasectomy status; Z79.899 Other long term (current) drug therapy; Z88.8 Allergy status to other drugs, medicaments and biological substances; Z98.890 Other specified postprocedural states; Z87.891 Personal history of nicotine dependence
CPT/HCPCS: 45378; J2003; J2704

== ENCOUNTER → 2025-02-02 07:17 | Outpatient (BNV) | payer BC, SELFPAY | PROVIDERS: PCP Registered Nurse; Visit Provider Surgery | DX: Z12.11 Encounter for screening for malignant neoplasm of colon (principal); Z86.0101 Personal history of adenomatous and serrated colon polyps; K57.90 Diverticulosis of intestine, part unspecified, without perforation or abscess without bleeding | CPT/HCPCS: 45378 ==